=== PATIENT | male | born 1990 | race Two or more races ===

== ENCOUNTER 2016-12-12 19:56 | Emergency (ER) | payer MEDICAID ==
[~2016-12-12] VITALS: Ht 185.4 cm; Wt 81.6 kg
[2016-12-12 19:59] VITALS: BP 136/82
== END 2016-12-12 21:37 | disposition left against medical advice (07) ==
LOC: EDBD 19:56 → ER 20:13
DX: R10.9 Unspecified abdominal pain (principal); Z53.21 Procedure and treatment not carried out due to patient leaving prior to being seen by health care provider